=== PATIENT | female | born 1950 | race Caucasian/White ===

== ENCOUNTER 2017-06-14 05:22 | Inpatient (IN) | payer BC, OTHER ==
[2017-06-06 13:13] LABS: HEMATOCRIT 38.8 % (37.0-47.0); MCH 27.6 pg (26.0-34.0); MCHC 33.5 g/dL (28.0-37.0); MCV 82.5 fL (80.0-100.0); RBC 4.71 mil/uL (4.20-5.00); RDW 13.8 % (10.5-14.5); WBC 10.9 thou/uL (4.0-11.0)
[2017-06-06 13:23] LABS: URINE BILIRUBIN 1+ (Negative); URINE BLOOD NEGATIVE (Negative); URINE COLOR YELLOW; URINE GLUCOSE-RANDOM* NEGATIVE (Negative); URINE KETONES NEGATIVE (Negative); URINE LEUKOCYTES-REFLEX NEGATIVE (Negative); URINE PROTEIN (DIPSTICK) NEGATIVE (Negative); URINE SPECIFIC GRAVITY >= 1.030 (1.003-1.035); URINE UROBILINOGEN 0.2 E.U./dl (0.2-1.0)
[2017-06-06 13:24] LABS: ALBUMIN 3.5 g/dL (3.4-5.0); CALCIUM 9.1 mg/dL (8.5-10.1); CREATININE 0.6 mg/dL (0.6-1.0); POTASSIUM 4.3 mmol/L (3.5-5.1)
[2017-06-06 13:27] LABS: PROTIME 10.3 Seconds (9.3-11.4)
[2017-06-06 13:31] LABS: ICTOTEST (BILI CONFIRMATORY) Negative (Negative)
[2017-06-14] VITALS (10 sets, daily range): BP systolic 128–174; BP diastolic 71–97
[~2017-06-14] VITALS: Ht 152.4 cm; Wt 70.3 kg
--- NOTE | ~2017-06-14 | O ---
[facility] [place] [address] OPERATIVE REPORT Name: CORAL BECERRA Room #: 150-7 ADM IN M.R.#: [id number] Admission: 06/14/17 Attend Phys: Hilario Christianson MD Discharge: Date of : 52 Report #: [id number] THIS REPORT FOR: //name// CC: Adela Christianson DATE OF SERVICE: 06/14/2017 PREOPERATIVE DIAGNOSIS: Left knee degenerative joint disease, severe. POSTOPERATIVE DIAGNOSIS: Left knee degenerative joint disease, severe. PROCEDURE: Left total knee arthroplasty. SURGEON: Hilario Christianson MD. GAMB CUTTER: BHAVIK Hdez. ANESTHETIC: General. INDICATIONS: See hospital H and P. IMPLANTS UTILIZED: Used the [employer] knee system. We used a press-fit cruciate-retaining Legion porous size 4 femur, size 2 Heather tibial tray with a 12 mm insert and a 32 mm patella. DESCRIPTION OF PROCEDURE: After adequate general anesthesia had been obtained, the patient's left lower extremity was prepped and draped in the usual meticulous sterile fashion. Limb was exsanguinated with gravity and tourniquet inflated to 300 torr. Anterior midline incision was made, subQ divided sharply. Hemostasis obtained with electrocautery. Medial parapatellar incision was made. Infrapatellar fat pad excised. Medial release performed. The drill was used to drill the distal femur. This hole was enlarged, irrigated, suctioned, and the intramedullary guide placed in the full length of the femur. The distal femoral cutting guide pinned to appropriate height, distal femoral cut was made. Measuring device determined the size 4 as appropriate size for this patient. We marked the distal femur, impacted the cutting guide into place and the anterior, posterior and chamfer cuts were made. Rongeur was used to remove additional osteophytes. At this time, the ACL was transected, tibia translated anteriorly, menisci were excised. Drill was used to drill central portion of the tibia. This hole was enlarged, irrigated, suctioned, and the intramedullary guide placed along the tibia. Proximal tibia cutting guide placed at appropriate height. Proximal tibia cut was made. Two tray gave us the best coverage on the tibia. We put [address] [address] OPERATIVE REPORT Name: CORAL BECERRA Room #: 150-7 ADM IN M.R.#: [id number] Admission: 06/14/17 Attend Phys: Hilario Christianson MD Discharge: Date of : 52 Report #: [id number] the trial components in position with the 12 spacer, she had the best flexion and extension gap. Patella tracked normally. Patella was then measured, cutting guide clamped into place, patellar cut was made, 32 template gave us the best coverage. Pedicles were drilled, trial component put in position. It tracked normally. The knee was taken through several cycles of flexion and extension. Tibial tray rotation marked, distal femur punched, tibial keel cuts were made. The knee was irrigated with both pulse lavage and antibiotic irrigation. The cement was vacuum mixed and when it reached the appropriate consistency, the knee was thoroughly dried, the tibial tray was cemented in place. Excess cement was removed. The polyethylene was impacted into place and the femur impacted in place and the knee was taken out to 30 degrees of flexion with uniform compression placed across components. Patellar button was then cemented into place and again excess cement was removed. Irrigation was allowed to rest of the wound while the cement fully cured. When it had done so, the knee was irrigated, dried thoroughly and inspected. Drains were placed superolaterally deep and superficial. Retinacular layer closed with combination of interrupted [id number] #1 Vicryl as well as running #1 Tevdek. SubQ closed with 2-0 Monocryl, skin closed with kelsi. Sterile compressive dressing was complied. Tourniquet deflated. By: [id number] Hilario Christianson MD /nt
[~2017-06-14 05:22] MED LIST: ALEVE220 M1 PO; AMBIEN CR12.5 MG PO; ASPIR 8181 MG PO; BENADRYL25 MG PO; CENTRUM SILVER1 EAC4 PO; IRON CHEWS15 M1 PO; IRON325 PO; SUPER B COMPLE150 MG PO; VITAMIN D35000 UNIT PO
[2017-06-15 03:33] VITALS: BP 109/51
[2017-06-15 04:08] VITALS: BP 127/66
[2017-06-15 06:22] LABS: HEMATOCRIT 35.5 % (37.0-47.0); HEMOGLOBIN 11.6 gm/dL (12.0-15.0); MCH 26.7 pg (26.0-34.0); MCHC 32.7 g/dL (28.0-37.0); MCV 81.8 fL (80.0-100.0); RBC 4.34 mil/uL (4.20-5.00); WBC 12.5 thou/uL (4.0-11.0)
[2017-06-15 07:25] VITALS: BP 136/69; BP 139/80
[2017-06-15 11:10] VITALS: BP 136/69
[2017-06-15 15:15] VITALS: BP 116/63
[2017-06-15 18:58] VITALS: BP 159/84
[2017-06-16 03:33] LABS: HEMATOCRIT 34.3 % (37.0-47.0); HEMOGLOBIN 11.1 gm/dL (12.0-15.0); MCH 26.7 pg (26.0-34.0); MCHC 32.4 g/dL (28.0-37.0); MCV 82.4 fL (80.0-100.0); RBC 4.16 mil/uL (4.20-5.00); WBC 9.2 thou/uL (4.0-11.0)
[2017-06-16 04:18] VITALS: BP 148/72
[2017-06-16 08:38] VITALS: BP 164/74
[2017-06-16 11:34] VITALS: BP 178/83
[2017-06-16 11:35] VITALS: BP 170/71
[2017-06-16 16:00] VITALS: BP 134/48
[2017-06-16 20:02] VITALS: BP 142/54
[2017-06-17 04:00] LABS: HEMATOCRIT 31.8 % (37.0-47.0); HEMOGLOBIN 10.5 gm/dL (12.0-15.0); MCHC 33.1 g/dL (28.0-37.0); MCV 81.5 fL (80.0-100.0); RBC 3.9 mil/uL (4.20-5.00); RDW 13.9 % (10.5-14.5)
[2017-06-17 04:50] VITALS: BP 113/54
[2017-06-17] MEDS ORDERED: XARELTO10 MG PO (06:55)
[2017-06-17 07:15] VITALS: BP 140/74
[2017-06-17 09:49] VITALS: BP 136/69
[2017-06-17 10:17] VITALS: BP 136/69
== END 2017-06-17 14:20 | disposition home health service (06) | DRG 470 ==
LOC: TBA 05:22 → PRE 10:57 → 4N 12:13 → PRE 12:23 → ENTRNSPT 06-17 14:15 → 4N 06-17 14:20
PROVIDERS: Orthopaedic Surgery
PROC: 0SRD0JA Replacement of Left Knee Joint with Synthetic Substitute, Uncemented, Open Approach (ICD-10-PCS; principal; 2017-06-14)
DX: M17.12 Unilateral primary osteoarthritis, left knee (principal); K59.00 Constipation, unspecified; G47.00 Insomnia, unspecified; Z79.899 Other long term (current) drug therapy; Z79.82 Long term (current) use of aspirin; Z88.2 Allergy status to sulfonamides; Z88.8 Allergy status to other drugs, medicaments and biological substances
CPT/HCPCS: 10790; 50010; 50101; 50415; 50954; 51130; 51225; 51320; 51412; 51771; 52001; 53078; 53364; 56525; 56527; 62110; 62900; 64042; 64043; 70005

== ENCOUNTER → 2017-09-26 | Outpatient (CLI) | payer BC, OTHER ==
[~2017-09-26] MED LIST changes: +XARELTO10 MG PO
== END | disposition home or self-care (01) ==
LOC: GI 06:28
DX: D50.9 Iron deficiency anemia, unspecified (principal); Z88.2 Allergy status to sulfonamides; Z88.6 Allergy status to analgesic agent; Z79.899 Other long term (current) drug therapy